=== PATIENT | female | born 1990 | race Two or more races ===

== ENCOUNTER 2017-04-21 12:01 | Inpatient (IN) | payer MEDICAID ==
[2017-04-21 11:41] LABS: APPEARANCE,URINE CLEAR; BILIRUBIN,URINE NEGATIVE (NEGATIVE); COLOR,URINE STRAW; GLUCOSE, URINE NEGATIVE (NEGATIVE); KETONES,URINE NEGATIVE (NEGATIVE); LEUKOCYTE ESTERASE,URINE NEGATIVE (NEGATIVE); NITRITE,URINE NEGATIVE (NEGATIVE); PROTEIN,URINE NEGATIVE (NEGATIVE); URINE SPECIFIC GRAVITY 1.005; UROBILINOGEN,URINE NEGATIVE mg/dL (<2.0)
[2017-04-21 11:42] LABS: AMNISURE (ROM) POSITIVE (NEGATIVE)
[2017-04-21 11:59] LABS: URINE AMPHETAMINES SCREEN NEGATIVE; URINE BARBITURATES SCREEN NEGATIVE; URINE BENZODIAZEPINES SCREEN NEGATIVE; URINE COCAINE SCREEN NEGATIVE; URINE MARIJUANA (THC) SCREEN NEGATIVE; URINE METHADONE SCREEN NEGATIVE; URINE PHENCYCLIDINE SCREEN NEGATIVE
[~2017-04-21 12:01] MED LIST: AZITHROMYCIN 500 MG in DEXTROSE 5%-WATER 250 ML IV PRN; CEFAZOLIN SODIUM 1 GM in DEXTROSE 5%-WATER 50 ML IV PRN
[2017-04-21] MEDS ORDERED: AZITHROMYCIN INJ 500 MG VIAL IV ONE (12:02)
[2017-04-21] MEDS ORDERED: CITRIC ACID/SODIUM CITRATE ORAL SOLN 15 ML UDCUP ONE (12:03)
[2017-04-21] MEDS ORDERED: CEFAZOLIN 1 GM/D5W RTU 1 GM/50 ML RTUPB IV ONE (12:03)
[2017-04-21 12:51] LABS: ABSOLUTE EOSINOPHILS # (AUTO) 0.1 10^3/uL (0.0-0.6); ABSOLUTE LYMPHOCYTES (AUTO) 2.3 10^3/uL (0.5-4.7); ABSOLUTE MONOCYTES (AUTO) 0.8 10^3/uL (0.1-1.4); ABSOLUTE NEUT (AUTO) 7.6 10^3/uL (1.7-8.2); BASOPHILS % (AUTO) 0.4 % (0-2); EOSINOPHILS % (AUTO) 1.2 % (0-6); HEMATOCRIT 33.3 % (36.0-47.0); MEAN CORPUSCULAR HEMOGLOBIN 27.2 pg (27.0-33.4); MEAN CORPUSCULAR HGB CONC 32.9 g/dL (32.0-36.0); MEAN CORPUSCULAR VOLUME 83 fl (80-97); MONOCYTES % (AUTO) 7.3 % (3-13); PLATELET COUNT 259 10^3/uL (150-450); RED BLOOD COUNT 4.04 10^6/uL (3.72-5.28); RED CELL DISTRIBUTION WIDTH 13.5 % (11.5-14.0); SEGMENTED NEUTROPHILS % (AUTO) 70.1 % (42-78); TOTAL CELLS COUNTED % (AUTO) 100 %; WHITE BLOOD COUNT 10.9 10^3/uL (4.0-10.5)
[2017-04-21] MEDS ORDERED: MIDAZOLAM 2 MG/2 ML INJ ONE (12:54)
[2017-04-21] MEDS ORDERED: EPHEDRINE SULFATE INJ 50 MG/1 ML AMPULE ONE (12:54)
[2017-04-21] MEDS ORDERED: OXYTOCIN/NORMAL SALINE 20 UNIT/1,000 ML RTUINJ ONE (12:54)
[2017-04-21] MEDS ORDERED: OXYTOCIN 10 UNIT/ML VIAL ONE (12:54)
[2017-04-21] MEDS ORDERED: FENTANYL CITRATE INJ/PF 100 MCG/2 ML AMPUL ONE ×2 (12:54→15:13)
[2017-04-21] MEDS ORDERED: KETOROLAC TROMETHAMINE INJ/PF 30 MG/1 ML SDV ONE (12:54)
[2017-04-21] MEDS ORDERED: ACETAMINOPHEN 100 ML IV ONE (12:55)
[2017-04-21] MEDS ORDERED: ONDANSETRON HCL INJ/PF 4 MG/2 ML SDV ONE (12:55)
[2017-04-21] MEDS ORDERED: MAGNESIUM HYDROXIDE SUSP 30 ML UDCUP PO PRN (13:50)
[2017-04-21] MEDS ORDERED: ACETAMINOPHEN 650 MG SUPP.RECT PR PRN (13:50)
[2017-04-21] MEDS ORDERED: GLYCERIN/WITCH HAZEL LEAF 1 EACH MED..PAD TP PRN (13:50)
[2017-04-21] MEDS ORDERED: ACETAMINOPHEN WITH CODEINE #3 TABLET PO PRN (13:50)
[2017-04-21] MEDS ORDERED: BENZOCAINE/MENTHOL AEROSOL SPRAY 56 ML TOP PRN (13:50)
[2017-04-21] MEDS ORDERED: PROMETHAZINE HCL 25 MG SUPP.RECT PR PRN (13:50)
[2017-04-21] MEDS ORDERED: ZOLPIDEM TARTRATE 5 MG TABLET PO PRN (13:50)
[2017-04-21] MEDS ORDERED: DIPHENHYDRAMINE HCL 25 MG CAPSULE PO PRN (13:50)
[2017-04-21] MEDS ORDERED: PROMETHAZINE HCL INJ 25 MG/1 ML VIAL IV PRN ×2 (13:50→16:49)
[2017-04-21] MEDS ORDERED: NA PHOS,M-B/NA PHOS,DI-BA (ADULT) 133 ML ENEMA PR PRN (13:50)
[2017-04-21] MEDS ORDERED: MEASLES,MUMPS&RUBELLA VACC/PF 0.5 ML VIAL SUBCUT PRN ×2 (13:50→16:49)
[2017-04-21] MEDS ORDERED: PSEUDOEPHEDRINE HCL 30 MG TABLET PO PRN (13:50)
[2017-04-21] MEDS ORDERED: OXYTOCIN/NORMAL SALINE 20 UNIT/1,000 ML RTUINJ IV PRN ×2 (13:50→16:49)
[2017-04-21] MEDS ORDERED: DIBUCAINE 1% OINTMENT 28 GM TP PRN (13:50)
[2017-04-21] MEDS ORDERED: PROMETHAZINE HCL 25 MG TABLET PO PRN (13:50)
[2017-04-21] MEDS ORDERED: DIPH/PERTUSS(ACELL)/TETANUS VAC/PF 0.5 ML SYR (>=10YO) IM PRN ×2 (13:50→16:49)
--- NOTE | 2017-04-21 13:59 | OPERATIVE REPORT E ---
Operative Report NAME: JESUS DEJESUS : 1990 AGE: 26Y DATE OF SURGERY: 04/21/2017 ROOM: LR200 PREOPERATIVE DIAGNOSES: 1. IUP at 36 weeks, 2 days. 2. Premature rupture of membranes. 3. Prior . POSTOPERATIVE DIAGNOSES: 1. IUP at 36 weeks, 2 days. 2. Premature rupture of membranes. 3. Prior . PROCEDURE: Repeat low transverse , delivery of viable male. Apgars of 9 and 9. Weight 6 pounds 1 ounce. SURGEON: Jude ROMERO M.D. ESTIMATED BLOOD LOSS: Less than 500 mL. TISSUE REMOVED OR ALTERED: Placenta. ANESTHESIA: Spinal. DESCRIPTION OF PROCEDURE: The patient was placed in a supine position, rolled on her right side, prepped and draped in sterile fashion. A Pfannenstiel incision was made through an existing Pfannenstiel eschar and excision extended through the subcutaneous tissue and fascia with sharp dissection. Fascia sharply divided and rectus muscle bluntly and sharply divided. Parietal peritoneum was entered with sharp dissection. The uterus was nicked in the midline, extended bilaterally with blunt dissection. The infant was then delivered through the uterine abdominal incision. Nose and mouth suctioned with a bulb syringe. Cord was clamped. The infant was passed from the table. Placenta was manually extracted. Uterus closed in 2 layers using 0 Vicryl first with a running stitch and the second a Lembert stitch imbricating the first layer. There was a small amount of bleeding on the right side controlled with figure of eight suture of 0 Vicryl. Hemostasis was noted. Fascia was closed with 0 Vicryl in a running fashion and skin was closed with subcu absorbable nito. The patient's urine remained clear throughout the procedure. She tolerated well and was taken to recovery room and infant to nursery in good condition. DICTATING PHYSICIAN: Jude ROMERO M.D. [id number] PHY#: [id number] ID: [id number] JOB#: [id number] ACCT: [id number] cc:Jude ROMERO M.D. >
--- NOTE | 2017-04-21 15:52 | Delivery Summary ---
Del Sum A-C Datetime Report Generated by CPN: 04/21/2017 15:51 DELIVERY PERSONNEL DELIVERY PERSONNEL: [id number] Delivery Doctor:: Robel Hodges MD Anesthesiologist:: Alfonso Navarrete MD PUBLIC HEALTH AIDE:: Erwin Culp PUBLIC HEALTH AIDE Lamination Inspector:: Tami Mathis RN Neonatal Nurse Practitioner:: MARTA Abernathy Nursery Nurse:: Florence Rea RN Vocational Teacher/INDUSTRIAL DESIGN ENGINEER: [facility] Vocational Teacher/INDUSTRIAL DESIGN ENGINEER: Kate Helton, BEHAVIOR SPECIALIST MATERNAL INFORMATION Delivery Anesthesia: Spinal Medications After Delivery: Pitocin Bolus-Please Comment; Pitocin Drip 20 Units/1000ml NSS Meds After Delivery Comment: Pitocin 20 units Estimated Blood Loss (ml): 500 Maternal Complications: None Provider Comments: PROM 35 and 2 prior section LABOR SUMMARY EDC: 05/17/2017 00:00 Labor Anesthesia: None LABOR INFORMATION Reason for Induction: Premature Rupture of Membranes Group B Beta Strep: unkown STAGES OF LABOR Stage 3 hr: 0 Stage 3 min: 2 VAGINAL DELIVERY Episiotomy: None Laceration #1: None Laceration Extension #1: N/A Laceration Repair: Not Applicable Sponge Count Correct: N/A Sharps Count Correct: N/A CSECTION DELIVERY Primary Indication: Repeat Elective Secondary Indication: PROM CSection Urgency: Non-Scheduled CSection Incidence: Repeat Labor: No Labor Elective: Elective CSection Incision: Lower Uterine Transverse BABY A INFORMATION Infant Delivery Date/Time: 04/21/2017 13:23 Method of Delivery: Born in Route : No : N/A Forceps: N/A Vacuum Extraction: N/A Shoulder Dystocia : No PRESENTATION/POSITION BABY A Presentation: Cephalic PLACENTA INFORMATION BABY A Placenta Delivery Time : 04/21/2017 13:25 Placenta Method of Delivery: Manual Removal Placenta Status: Delivered SCORES BABY A Heart Rate 1 min: >100 bpm Resp Effort 1 min: Good Cry Reflex Irritability 1 min: Cough or Sneeze or Pulls Away Muscle Tone 1 min: Active Motion Color 1 min: Body [place], Extremities Blue Resuscitation Effort 1 min: Tactile Stimulation SCORE 1 MIN: 9 Heart Rate 5 min: >100 bpm Resp Effort 5 min: Good Cry Reflex Irritability 5 min: Cough or Sneeze or Pulls Away Muscle Tone 5 min: Active Motion Color 5 min: Body [place], Extremities Blue Resuscitation Effort 5 min: Tactile Stimulation SCORE 5 MIN: 9 INFANT INFORMATION BABY A Gestational Age at Delivery: 36.2 Gestational Status: Late - 34- 36.6 Weeks Infant Outcome : Liveborn Infant Condition : Stable Infant Sex: Male IDENTIFICATION BABY A Verification Date/Time: 04/21/2017 13:26 ID Band Number: [id number] Mother's Name Verified: Yes RN Verifying : GINA Nj Additional Verifying Personnel: SAMARA Jean Baptiste WEIGHT/LENGTH BABY A Infant Birthweight (gm): 2740 Weight (lb): 6 Infant Weight (oz): 1 Infant Length (in): 18.50 Length (cm): 46.99 CORD INFORMATION BABY A No. Cord Vessels: 3 Nuchal Cord : N/A Cord Blood Taken: Yes-For Eval (Mom's Blood Type - or O+) Infant Suction: Mouth; Nose ASSESSMENT BABY A Infant Complications: None Physical Findings at Delivery: Within Normal Limits Physical Findings- Other: short cord Infant Respirations: Appears Normal Skin to Skin: Yes Relationship Banker/ALS Called : No Transferred To: Nursery SIGNATURES Signature: with User ID: [email or web address]
--- NOTE | 2017-04-21 16:03 | Admission Physical ---
Datetime Report Generated by CPN: 04/21/2017 16:03 CURRENT ADMISSION Hx Assessment: The History has been Reviewed and is Current Chief Complaint: Uterine Contractions; Suspected Ruptured Membranes Indication for Induction: Not Applicable Indication for Induction: , Intrauterine ; Active Labor; Ruptured Membranes; Repeat Section Admit Plan: Admit to Unit; Initiate Section Protocol ALLERGIES Medication Allergies: No Medication Allergies: No Known Allergies (02/17/2014) Latex: No Latex Allergies Food Allergies: N/A Environmental Allergies: N/A OBSTETRICAL HISTORY EDC: 05/17/2017 00:00 : 4 Para: 1 Gestational Diabetes: No Rh Sensitization: No Incompetent Cervix: No FRANCISCO JAVIER: No Infertility: No ART Treatment: No Uterine Anomaly: No IUGR: No Hx Previous C/S: No Macrosomia: No Hx Loss/Stillborn: No PIH: No Hx : No Placenta Previa/Abruption: No Depression/PP Depression: No PTL/PROM: No Post Hemorrhage: No Current Procedures: Ultrasound Obstetrical History Comments: G1 - 2012, SAB G2 - 2013, SAB G3 - 2014, Girl, C/S - failure to progress, fever G4 - Current SEE RECORDS Alcohol: No Marijuana : No Cocaine: No Other Illicit Drugs: No Cigarettes: Never Smoker. [id number] MEDICAL HISTORY Diabetes: No Blood Transfusion: No Pulmonary Disease (Asthma, TB): No Breast Disease: No Hypertension: No Hospice Entrance Attendant Surgery: No Heart Disease: No Hosp/Surgery: Yes Autoimmune Disorder: No Anesthetic Complications: No Kidney Disease: No Abnormal Pap Smear: No Neuro/Epilepsy: No Psychiatric Disorders: No Other Medical Diseases: No Hepatitis/Liver Disease: No Significant Family History: No Varicosities/Phlebitis: No Trauma/Violence : No Thyroid Dysfunction: No Medical History Comments: 2015 - C/S INFECTIOUS HISTORY Gonorrhea: No Genital Herpes: No Chlamydia: No Tuberculosis: No Syphilis: No Hepatitis: No HIV/AIDS Exposure: No Rash or Viral Illness: No HPV: No PHYSICAL EXAM General: Normal HEENT: Normal Neurologic: Normal Thyroid: Deferred Heart: Normal Lungs: Normal Breast: Normal Back: Normal Abdomen: Normal Genitourinary Exam: Normal Extremities: Normal DTRs: Normal Pelvic Type: Adequate Vital Signs: Reviewed VAGINAL EXAM Dilatation: 2 Effacement: 90 Station: -1 Contraction Comments: 3-5 MEMBRANES Membranes: Ruptured FETUS A EGA: 36.2 Monitoring: External US FHR- Baseline: 145 Accelerations: 15X15 Decelerations: None FHR Category: Category I Presentation: Vertex Admit Comment: Admit to L _ D Previous C/S, for nrfht and chrorio, desires repeat. GBS unknown SROM, clear Will precede with C/S 1 G ancef, 500 mg zithromax See record for complete record PLANS FOR LABOR AND DELIVERY Labor and Delivery: None Pain Management: Spinal Feeding Preference: Both Benefit of Breast Feed Discussed: Yes INFORMED CONSENT Assignment: Robel Hodges MD Signature: with User ID: [email or web address] : with User ID: [email or web address]
[2017-04-21] MEDS ORDERED: HYDROMORPHONE HCL INJ/PF 2 MG/ML AMPULE IV PRN (16:49)
[2017-04-21] MEDS ORDERED: ACETAMINOPHEN 325 MG TABLET PO PRN (16:49)
[2017-04-21] MEDS ORDERED: SIMETHICONE 80 MG TAB.CHEW PO PRN (16:49)
[2017-04-21] MEDS ORDERED: HYDROMORPHONE HCL INJ/PF 2 MG/ML AMPULE ONE (16:55)
[2017-04-21] MEDS: FERROUS SULFATE 325 MG TABLET PO SCH (17:42)
[2017-04-21] MEDS: DOCUSATE SODIUM 100 MG CAPSULE PO SCH (17:45)
[2017-04-21] MEDS ORDERED: DOCUSATE SODIUM 100 MG CAPSULE PO SCH (18:00)
[2017-04-21] MEDS: OXYCODONE-ACETAMINOPHEN 5-325 MG TABLET PO PRN (20:08)
[2017-04-21] MEDS: KETOROLAC TROMETHAMINE INJ/PF 30 MG/1 ML SDV IV SCH (21:28)
[2017-04-21] MEDS: FAMOTIDINE 20 MG TABLET PO SCH (21:28)
[2017-04-21] MEDS ORDERED: IBUPROFEN 800 MG TABLET PO SCH (22:00)
[2017-04-22] MEDS: OXYCODONE-ACETAMINOPHEN 5-325 MG TABLET PO PRN ×5 (00:10→20:07)
[2017-04-22] MEDS: KETOROLAC TROMETHAMINE INJ/PF 30 MG/1 ML SDV IV SCH (05:49)
[2017-04-22 08:19] LABS: HEMATOCRIT 25.6 % (36.0-47.0); MEAN CORPUSCULAR HEMOGLOBIN 27.3 pg (27.0-33.4); MEAN CORPUSCULAR HGB CONC 33.7 g/dL (32.0-36.0); MEAN CORPUSCULAR VOLUME 81 fl (80-97); PLATELET COUNT 201 10^3/uL (150-450); RED BLOOD COUNT 3.17 10^6/uL (3.72-5.28); RED CELL DISTRIBUTION WIDTH 13.2 % (11.5-14.0)
[2017-04-22 08:27] LABS: HEMOGLOBIN 8.6 g/dL (12.0-15.5)
[2017-04-22] MEDS ORDERED: PRENATAL VITAMIN W DHA CAPSULE PO SCH (10:00)
[2017-04-22] MEDS: FERROUS SULFATE 325 MG TABLET PO SCH ×2 (10:17→18:28)
[2017-04-22] MEDS: PRENATAL VITAMIN W DHA CAPSULE PO SCH (10:17)
[2017-04-22] MEDS: FAMOTIDINE 20 MG TABLET PO SCH ×2 (10:17→21:05)
[2017-04-22] MEDS: SENNOSIDES/DOCUSATE 8.6-50 MG 1 EACH TABLET PO SCH (10:17)
[2017-04-22] MEDS: DOCUSATE SODIUM 100 MG CAPSULE PO SCH ×2 (10:17→18:28)
--- NOTE | 2017-04-22 14:18 | PDOC PROGRESS REPORT ---
Subjective-OB Progress Note for:: 04/22/17 Subjective: 26yo G4 now P2 s/p repeat for premature ruptured of membranes ppd1. Ambulating, voiding and passing flatus without difficulty. No concerns today. Physical Exam (OB) Vital Signs: Temp Pulse Resp BP Pulse Ox 97.5 F 82 14 122/74 100 04/22/17 11:21 04/22/17 11:21 04/22/17 11:21 04/22/17 11:21 04/22/17 11:21 Intake & Output 04/21/17 04/22/17 04/23/17 06:59 06:59 06:59 Output Total 2100 Balance -2100 Weight 84.4 kg - General General Appearance: Appears well In distress: None - PIH/Pre-Eclampsia DTR's: 2 + Clonus: Negative Headache: Absent Epigastric Pain: No Visual Changes: No - Dressing Removed: No Incision: Dressing - Lochia Lochia Amount: Scant < 10 ml Lochia Color: Rubra/Red - Abdomen Description: Tender, Soft Hernia Present: No Fundal Description: Firm, Midline Fundal Height: u/u - u/2 - Respiratory Respiratory Status: No respiratory distress - Extremities Upper extremity: Normal inspection Lower extremities: Normal inspection - Neurological Cognition: Normal Orientation: AAOx4 - Psychological Associated symptoms: Normal affect, Normal mood Objective-Diagnostic Laboratory: 04/22/17 07:25 04/22/17 07:25 WBC 11.0 H RBC 3.17 L Hgb 8.6 L D Hct 25.6 L MCV 81 MCH 27.3 MCHC 33.7 RDW 13.2 Plt Count 201 Assessment and Plan(PN) - Assessment and Plan (1) Acute blood loss anemia Is this a current diagnosis for this admission?: Yes Plan: increase iron in diet and feso4 bid (2) premature rupture of membranes Qualifiers: PROM onset of labor timing: unspecified duration between rupture of membranes and onset of labor Qualified Code(s): O42.919 - premature rupture of membranes, unspecified as to length of time between rupture and onset of labor, unspecified trimester Is this a current diagnosis for this admission?: Yes Plan: delivered (3) S/P repeat low transverse Is this a current diagnosis for this admission?: Yes Plan: routine pp care - Time Spent with Patient Time with patient: Less than 15 minutes Medications reviewed and adjusted accordingly: Yes - Disposition Anticipated Discharge: Home Within: within 24 hours
[2017-04-22] MEDS: IBUPROFEN 800 MG TABLET PO SCH (23:12)
[2017-04-23] MEDS: IBUPROFEN 800 MG TABLET PO SCH (05:38)
--- NOTE | 2017-04-23 08:33 | PDOC DISCHARGE SUMMARY ---
Final Diagnosis Discharge Date: 04/23/17 - Final Diagnosis (1) Acute blood loss anemia Is this a current diagnosis for this admission?: Yes (2) premature rupture of membranes Is this a current diagnosis for this admission?: Yes (3) S/P repeat low transverse Is this a current diagnosis for this admission?: Yes Discharge Data - Discharge Medication Prescriptions: Oxycodone HCl/Acetaminophen [Percocet 5-325 mg Tablet] 2 tab PO Q4HP PRN #30 tablet PRN Reason: Docusate Sodium [Colace 100 mg Capsule] 100 mg PO BID #60 capsule Ferrous Sulfate [Feosol 325 mg Tablet] 325 mg PO BID #60 tablet Ibuprofen [Motrin 800 mg Tablet] 800 mg PO Q6 #60 tablet Home Medications: No122/Iron/Folic Acid [ Multi Tablet] 1 each PO DAILY 04/21/17 Docusate Sodium [Colace 100 mg Capsule] 100 mg PO BID #60 capsule 04/23/17 Ferrous Sulfate [Feosol 325 mg Tablet] 325 mg PO BID #60 tablet 04/23/17 Ibuprofen [Motrin 800 mg Tablet] 800 mg PO Q6 #60 tablet 04/23/17 Oxycodone HCl/Acetaminophen [Percocet 5-325 mg Tablet] 2 tab PO Q4HP PRN #30 tablet 04/23/17 Reason(s) for Admission: PROM Intrapartum Procedure(s): : Low Cervical, Transverse - [place] Data Baby 1 Male at 1 minute: 9 at 5 minutes: 9 Weight: 2740 kg Home with Mother: Yes Complications: Yes - pts aunt dropped baby - Diagnosis Test Laboratory: Temp Pulse Resp BP Pulse Ox 98.2 F 74 16 119/77 98 04/23/17 04:01 04/23/17 04:01 04/23/17 04:01 04/23/17 04:01 04/23/17 04:01 04/21/17 04/21/17 04/22/17 11:22 12:30 07:25 RBC 4.04 3.17 L Hgb 11.0 L 8.6 L D Hct 33.3 L 25.6 L Urine Opiates Screen NEGATIVE - Discharge information/Instructions Discharge Activity: Activity As Tolerated, No Driving, No Lifting Over 10 Pounds , No Lifting/Push/Pulling, Pelvic Rest, No tub bath Discharge Diet: Regular Disposition: HOME, SELF-CARE Follow up with: [facility] in: 1, Weeks
[2017-04-23 09:36] VITALS: BP 116/76
[2017-04-23] MEDS: FAMOTIDINE 20 MG TABLET PO SCH (11:35)
[2017-04-23] MEDS: DOCUSATE SODIUM 100 MG CAPSULE PO SCH (11:35)
[2017-04-23] MEDS: PRENATAL VITAMIN W DHA CAPSULE PO SCH (11:35)
[2017-04-23] MEDS: FERROUS SULFATE 325 MG TABLET PO SCH (11:35)
[2017-04-23] MEDS: SENNOSIDES/DOCUSATE 8.6-50 MG 1 EACH TABLET PO SCH (11:35)
== END 2017-04-23 11:59 | disposition home or self-care (01) | DRG 765 ==
LOC: LC 12:01 → LR 12:04 → 2N 16:01
PROVIDERS: ADMIT Obstetrics & Gynecology Gynecology; ATTEND Obstetrics & Gynecology Gynecology
PROC: 10D00Z1 Extraction of Products of Conception, Low, Open Approach (ICD-10-PCS; principal; 2017-04-21)
DX: O42.013 Preterm premature rupture of membranes, onset of labor within 24 hours of rupture, third trimester (principal); D62 Acute posthemorrhagic anemia; O34.211 Maternal care for low transverse scar from previous cesarean delivery; N85.8 Other specified noninflammatory disorders of uterus; Z37.0 Single live birth; Z3A.36 36 weeks gestation of pregnancy; O99.02 Anemia complicating childbirth
CPT/HCPCS: 1961; 36415; 80307; 81005; 84112; 85025; 85027; 86592; 86850; 86900; 86901; 88307; 94799; J0131; J0456; J0690; J1170; J1885; J2250; J2405; J2590; J3010; J3490

== ENCOUNTER 2017-08-01 11:40 | Emergency (ER) | payer MEDICAID ==
--- NOTE | 2017-08-01 11:47 | ER Document Report ---
HPI - HPI Patient complains to provider of: Sore throat Onset: Other - Several days Onset/Duration: Gradual Quality of pain: Sharp Pain Level: 4 Context: 26-year-old female complaining of sore throat without fever for several days. Hurts more on the right than the left difficult to swallow due to pain. No runny nose or cough. No fever or chills Associated Symptoms: None Exacerbated by: Other - Swallowing Relieved by: Denies Similar symptoms previously: No Recently seen / treated by doctor: No - ROS ROS below otherwise negative: Yes Systems Reviewed and Negative: Yes All other systems reviewed and negative - REPRODUCTIVE Reproductive: REPORTS: : Past Medical History - General Information source: Patient - Social History Smoking Status: Never Smoker Frequency of alcohol use: None Drug Abuse: None Lives with: Spouse/Significant other Family History: Reviewed & Not Pertinent Renal/ Medical History: Reports: Hx Kidney Stones Past Surgical History: Reports: Hx Section - Immunizations Hx Diphtheria, Pertussis, Tetanus Vaccination: Yes Vertical Provider Document - CONSTITUTIONAL Agree With Documented VS: Yes Exam Limitations: No Limitations - INFECTION CONTROL TRAVEL OUTSIDE OF THE [place] IN LAST 30 DAYS: No - HEENT HEENT: Normocephalic, Pharyngeal Erythema - Bilateral, no tonsillar exudate, no abscess. negative: Conjuctival Injection - NECK Neck: Supple. negative: Lymphadenopathy-Left, Lymphadenopathy-Right - RESPIRATORY Respiratory: Breath Sounds Normal, No Respiratory Distress - CARDIOVASCULAR Cardiovascular: Regular Rate, Regular Rhythm - NEURO Level of Consciousness: Awake, Alert - DERM Integumentary: negative: Rash Discharge - Discharge Clinical Impression: Pharyngitis Condition: Good Disposition: HOME, SELF-CARE Instructions: Acetaminophen, Penicillin V K ([facility]), Sore Throat ([facility]) Additional Instructions: Chloraseptic spray to numb the throat Drink plenty of fluids Tylenol up to 4000 mg per day for pain Penicillin until it is done Prescriptions: Penicillin V Potassium [Penicillin Vk 500 mg Tablet] 500 mg PO QID #40 tablet
[2017-08-01 11:49] VITALS: BP 116/74
== END 2017-08-01 12:02 | disposition home or self-care (01) ==
LOC: ER 11:40
DX: J02.9 Acute pharyngitis, unspecified (principal); Z87.442 Personal history of urinary calculi
CPT/HCPCS: 87070; 87880; 99283